=== PATIENT | male | born 2000 | race Caucasian/White ===

== ENCOUNTER 2021-08-21 15:40 | Outpatient (REF) | payer MEDICAID, SELFPAY | END 2021-08-21 15:41 | disposition home or self-care (01) | LOC: HO.LAB 15:40 | PROVIDERS: PCP Pediatrics; Visit Provider Internal Medicine | DX: Z20.822 Contact with and (suspected) exposure to COVID-19 (principal) | CPT/HCPCS: C9803; U0003; U0005 ==

== ENCOUNTER 2022-04-30 15:34 | Emergency (ER) | payer OTHER, SELFPAY ==
--- NOTE | ~2022-04-30 | XR_ITS ---
EXAMINATION: XR CHEST CLINICAL INFORMATION: Dyspnea COMPARISON: None TECHNIQUE: Frontal view of the chest was obtained. FINDINGS: The lungs are clear. No airspace consolidation, pleural effusion, or pneumothorax. The cardiomediastinal silhouette is within normal limits. No acute osseous injury. XR/XR chest 1V IMPRESSION: No acute pulmonary process.
[2022-04-30 17:20] VITALS: BP 132/67; PULSE 73; RESP 18; TEMP 36.8; O2SAT 100; BMI 23.7
--- NOTE | 2022-04-30 17:28 | ECG_ITS ---
Test Reason : CP Blood Pressure : / mmHG Vent. Rate : 066 BPM Atrial Rate : 066 BPM P-R Int : 172 ms QRS Dur : 078 ms QT Int : 368 ms P-R-T Axes : 027 074 028 degrees QTc Int : 385 ms Poor data quality, interpretation may be adversely affected Normal sinus rhythm Normal ECG No previous ECGs available Referred By: Generic ED Physician Electronically Signed By:JOHN ALAMO
[2022-04-30 17:52] LABS: IDNOW Serial# 16C4AD1C
[2022-04-30 17:53] LABS: COVID-19 Test Negative (Negative)
--- NOTE | 2022-04-30 21:39 | ED.SOB ---
HPI - SOB/Dyspnea General Chief Complaint: Dyspnea Stated Complaint: diff. breathing Time Seen by Provider: 04/30/22 21:38 Source: patient Mode of arrival: ambulatory History of Present Illness HPI Narrative: Patient 21 years old with no significant medical history had COVID in 08/25 complaining of shortness of breath no history of asthma patient on arrival saturating 100% on room air with respiratory rate of 18 COVID test done today was negative and chest x-ray was also negative patient says when he thinks about the breathing he feels shortness of breath sleeping normally otherwise shortness of breath does not get worse on ambulation patient does have history of anxiety denies any worsening of anxiety lately Review of Systems Review of Systems: Yes all other systems are reviewed and are negative [facility] Social History Social History Advance Directives: No Advance Directives Information Provided: No Physical Exam Vital Signs: Vital Signs: Last Vital Signs Temp 98.2 F 04/30/22 17:20 Pulse 73 04/30/22 17:20 Resp 18 04/30/22 17:20 BP 132/67 04/30/22 17:20 Pulse Ox 100 04/30/22 17:20 O2 Del Method 04/30/22 17:20 BMI result Body Mass Index 23.7 Appearance: Alert. Oriented X3. No acute distress. ENT: Pharynx normal. Oral Mucosa moist Neck: Normal inspection. Neck supple. CVS: Normal heart rate and rhythm. Pulses normal. Respiratory: No respiratory distress. Equal air entry bilateral, no wheezing/rales/rhonchi abd; soft nontender Skin: Skin warm and dry. Normal skin color. Normal skin turgor. Extremities: No lower extremity edema. Neuro: Oriented X 3. MDM - SOB/Dyspnea Lab Data Attestation: I reviewed the patient's lab results. Labs: Lab Results 04/30/22 Range/Units 17:31 COVID-19 (MICHAEL) Negative (Negative) COVID-19 Clin Com See Note ECG Data Attestation: I personally reviewed and interpreted this ECG as follows: Interpretation: Normal sinus rhythm heart rate 66 beats per minute normal intervals normal axis no acute ST wave changes no acute ischemia Discharge Plan Discharge Clinical Impression: Shortness of breath, Atypical chest pain Patient Disposition: Home, Self-Care Instructions: Noncardiac Chest Pain (ED), Shortness of Breath (ED) Additional Instructions: your chest x-ray is normal COVID test negative and ekg was also normal Follow with PCP of further evaluation if problem continues Possible is anxiety could be a factor for shortness of breath
[2022-04-30 22:00] VITALS: BP 120/79; PULSE 59; RESP 16; TEMP 36.5; O2SAT 100
== END 2022-04-30 22:14 | disposition home or self-care (01) ==
PROVIDERS: Emergency Provider Internal Medicine
DX: R07.89 Other chest pain (principal); R06.02 Shortness of breath; Z20.822 Contact with and (suspected) exposure to COVID-19; Z79.899 Other long term (current) drug therapy
CPT/HCPCS: 71045; 87635; 93005; 99283; 99284